=== PATIENT | female | born 1980 ===

== ENCOUNTER 2017-07-14 16:51 | Emergency (ER) | payer BC, OTHER ==
[2017-07-14 17:11] VITALS: BP 141/84
--- NOTE | 2017-07-14 17:44 | ED ---
Throat Pain/Nasal Congestion - HPI Summary HPI Summary: Patient presents with one-week history of respiratory symptoms. She reports this started as a sore scratchy throat and progressed up into her head with sneezing, nasal congestion/sinus pressure, ear fullness. She admits to postnasal drip and symptoms have moved into her chest, producing a cough that is productive at times. Sx are improving w/ zyrtec w/ D. She denies fevers, chills, JENKINS, neck stiffness, skin changes. Initially she had some "headiness" however this seems to be improving each day. Denies nausea, vomiting, diarrhea however she has had a loose stool the past 1-2 days without pain. She feels wiped out but is still able to do daily tasks and denies shortness of breath or extreme fatigue. - History of Current Complaint Chief Complaint: UCGeneralIllness Time Seen by Provider: 07/14/17 17:02 Hx Obtained From: Patient - Allergies/Home Medications Allergies/Adverse Reactions: Allergies Allergy/AdvReac Type Severity Reaction Status Date / Time Sulfa (Sulfonamide Allergy Intermediate hives, rash Verified 07/14/17 17:11 Antibiotics) Home Medications: Home Medications Cetirizine HCl/Pseudoephedrine [Zyrtec-D Tablet] 1 tab PO BID 07/14/17 [History Confirmed 07/14/17] Norethindr/Eth Estradiol(Nf) [Lo Loestrin Fe (NF)] 1 tab PO DAILY 07/14/17 [ History Confirmed 07/14/17] PMH/Surg Hx/FS Hx/Imm Hx Previously Healthy: Yes Infectious Disease History: No Infectious Disease History: Denies: Traveled Outside the [place] in Last 30 Days - Social History Lives: With Family Alcohol Use: Weekly Hx Substance Use: No Substance Use Type: Reports: None Hx Tobacco Use: No Smoking Status (MU): Never Smoked Tobacco Review of Systems Constitutional: Negative Eyes: Negative ENT: Other - as in HPI Cardiovascular: Negative Positive: Cough Gastrointestinal: Other - loose stool Genitourinary: Negative Musculoskeletal: Negative Skin: Negative Neurological: Negative Psychological: Normal All Other Systems Reviewed And Are Negative: Yes Physical Exam Triage Information Reviewed: Yes Vital Signs On Initial Exam: Initial Vitals Temp Pulse Resp BP Pulse Ox 98.2 F 90 15 141/84 99 07/14/17 17:07 07/14/17 17:07 06/03/18 17:07 07/14/17 17:07 07/14/17 17:07 Vital Signs Reviewed: Yes Appearance: Positive: Well-Appearing, No Pain Distress, Well-Nourished Skin: Positive: Warm, Skin Color Reflects Adequate Perfusion, Dry - no rash Head/Face: Positive: Normal Head/Face Inspection Eyes: Positive: Normal, EOMI, JENNIFER, Conjunctiva Clear. Negative: Conjunctiva Inflammed, Discharge ENT: Positive: Hearing grossly normal, Pharynx normal - mild cobblestoning, Nasal congestion - mild- mucosa clear, TMs normal, Uvula midline. Negative: Nasal drainage, Tonsillar swelling, Tonsillar exudate, Trismus, Muffled voice, Hoarse voice, Sinus tenderness Neck: Positive: Supple, Nontender, No Lymphadenopathy Respiratory/Lung Sounds: Positive: Clear to Auscultation, Breath Sounds Present. Negative: Rales, Rhonchi, Stridor, Tracheal Deviation, Wheezes Cardiovascular: Positive: Normal, RRR, S1, S2. Negative: Murmur, Rub Abdomen Description: Positive: Nontender, No Organomegaly, Soft Bowel Sounds: Positive: Present Musculoskeletal: Positive: Normal, Strength/ROM Intact Neurological: Positive: Normal, Sensory/Motor Intact, Alert, Oriented to Person Place, Time, CN Intact II-III Psychiatric: Positive: Normal Diagnostics - Vital Signs Vital Signs Temp Pulse Resp BP Pulse Ox 07/14/17 17:07 98.2 F 90 15 141/84 99 - Laboratory Lab Statement: Any lab studies that have been ordered have been reviewed, and results considered in the medical decision making process. EENT Course/Dx - Diagnoses Provider Diagnoses: Viral URI with cough Discharge - Sign-Out/Discharge Documenting (check all that apply): Discharge/Admit/Transfer - Discharge Plan Condition: Stable Disposition: HOME Patient Education Materials: Upper Respiratory Infection (ED) Referrals: No Primary Care Phys,NOPCP [Primary Care Provider] - [facility] [Outside] Additional Instructions: Nasal wash (netti pot or saline spray) & salt water throat gargles 2 x day Drink you body weight in ounces of water every day Sleep 8+ hours per night Avoid Dairy and sugar Hot herbal/decaf tea with lemon & honey Chicken broth (preferably organic, free range chicken) Humidifier in house, but especially near bed at night Keep home temperature at 68F or less to reduce dryness Use cough drops/throat lozenges Try a facial steam with or without eucalyptus essential oil or Augustine's Vapor rub for congestion Avoid smoke, candles, perfumes, colognes, scented soaps/detergents , air fresheners and cleaning chemicals as these can cause airway irritation and trigger coughing You may use OTC medications based on your symptoms. Do not take medications if you do not need them *If your symptoms worsen, follow-up with PCP. If you do not have one, a contact number has been provided here. - Billing Disposition and Condition Condition: STABLE Disposition: HOME
== END 2017-07-14 17:51 | disposition home or self-care (01) ==
LOC: UCEAST 16:51
DX: J06.9 Acute upper respiratory infection, unspecified (principal); R05 Cough; Z88.2 Allergy status to sulfonamides
CPT/HCPCS: 99201; G0463